=== PATIENT | female | born 1985 | race Caucasian/White ===

== ENCOUNTER 2016-06-27 14:13 | Outpatient (CLI) | payer OTHER | END 2016-06-27 14:14 | LOC: LABRHC 14:13 | PROVIDERS: ATTEND Physician Assistant | DX: R30.0 Dysuria (principal); N30.00 Acute cystitis without hematuria | CPT/HCPCS: 87086; 87186 ==

== ENCOUNTER 2017-04-29 11:03 | Outpatient (CLI) | payer OTHER | END 2017-04-29 11:09 | LOC: LABRHC 11:03 | PROVIDERS: ATTEND Physician Assistant | DX: R30.0 Dysuria (principal) | CPT/HCPCS: 87086 ==